=== PATIENT | male | born 1960 | race Caucasian/White ===

== ENCOUNTER 2023-09-24 08:26 | Inpatient (IN) | payer OTHER ==
[~2023-09-24] VITALS: Ht 177.8 cm; Wt 76.1 kg
[2023-09-24] MEDS ORDERED: BACT400T PO (08:41)
[2023-09-24] MEDS ORDERED: METH4PACK PO (08:41)
[2023-09-24] MEDS ORDERED: ACET-907 PO (08:41)
[2023-09-24] MEDS ORDERED: CLEO300C2 PO (08:41)
[2023-09-24] MEDS ORDERED: IBUP200T46 PO (08:41)
[2023-09-24 10:03] LABS: BASO % 0.2 % (0.0-1.0); HEMATOCRIT 35.4 % (42.0-52.0); LYMPH % 7.7 % (24.0-44.0); MEAN CORPUSCULAR HEMOGLOBIN 28.6 pg (27.0-33.0); MEAN CORPUSCULAR HGB CONC 33.9 g/dl (32.0-36.5); MEAN CORPUSCULAR VOLUME 84.5 fl (80.0-96.0); MONO # 0.6 10^3/uL (0.0-0.8); MONO % 4.4 % (2.0-8.0); NEUTROPHILS # 11.6 10^3/uL (1.5-8.5); NEUTROPHILS % 87.2 % (36.0-66.0); PLATELET COUNT, AUTOMATED 167 10^3/uL (150-450); RED BLOOD COUNT 4.19 10^6/uL (4.30-6.10); WHITE BLOOD COUNT 13.3 10^3/uL (4.0-10.0)
[2023-09-24 10:18] LABS: ERYTHROCYTE SEDIMENTATION RATE 61 mm/hr (0-20)
[2023-09-24] MEDS: NS 1,000 ML IV ONE ×2 (10:20→12:07)
[2023-09-24 10:34] LABS: LIPASE 30 U/L (12-53)
[2023-09-24 10:36] LABS: ALBUMIN 2.9 G/DL (3.2-5.2); ALKALINE PHOSPHATASE 430 U/L (46-116); ALT/SGPT 410 U/L (7.0-40); AST/SGOT 255 U/L (<34); BILIRUBIN,DIRECT 0.4 MG/DL (<0.4); BLOOD UREA NITROGEN 16 MG/DL (9-23); CALCIUM LEVEL 8.3 MG/DL (8.3-10.6); CARBON DIOXIDE LEVEL 27 MMOL/L (20-31); CHLORIDE LEVEL 105 MMOL/L (98-107); GLOMERULAR FILTRATION RATE > 60.0 (>49); GLUCOSE, FASTING 129 MG/DL (74-106); POTASSIUM SERUM 4.4 MMOL/L (3.5-5.1); SODIUM LEVEL 137 MMOL/L (136-145); TOTAL PROTEIN 5.9 G/DL (5.7-8.2)
[2023-09-24 10:48] LABS: PROCALCITONIN 0.52 ng/ml
[2023-09-24] MEDS: cefTRIAXone SOD 2 GM in D5W MINI-BAG PLUS 50 ML IV ONE (11:22)
[2023-09-24] MEDS ORDERED: MOM 30ML SUSPENSION UDC PO PRN (12:00)
[2023-09-24] MEDS: DOCUSATE SODIUM 100MG CAPSULE PO SCH (12:07)
[2023-09-24] MEDS ORDERED: ACET-897 PO (12:09)
[2023-09-24] MEDS ORDERED: BACTDSTA PO (12:09)
[2023-09-24] MEDS ORDERED: HOME MED LIST COMPLETE! XX SCH (12:10)
[2023-09-24] MEDS: DOXYCYCLINE HYCLATE 100 MG in D5W MINI-BAG PLUS 100 ML IV SCH (12:38)
[2023-09-24] MEDS: ACETAMINOPHEN TAB 650MG DOSE (2X325MG) PO PRN (12:38)
[2023-09-24 13:40] VITALS: BP 113/74; TEMP 98.1; O2SAT 96
[2023-09-24 13:49] LABS: INR 1.3; PROTHROMBIN TIME 15.7 SECONDS (12.5-14.5)
[2023-09-24] MEDS: RIVAROXABAN 10MG TAB (XARELTO) PO SCH (17:34)
[2023-09-24 19:40] VITALS: BP 113/75; TEMP 98.1; O2SAT 97
[2023-09-24 20:00] VITALS: BP 113/75; TEMP 98.1; O2SAT 97
[2023-09-24] MEDS ORDERED: DOCUSATE SODIUM 100MG CAPSULE PO SCH (21:00)
[2023-09-25] MEDS: ONDANSETRON 4MG ORAL DISINTEGRATING TAB PO PRN (03:29)
[2023-09-25 03:50] VITALS: BP 140/63; TEMP 98.7; O2SAT 94
[2023-09-25 06:32] LABS: BASO % 0.2 % (0.0-1.0); EOS % 0.4 % (0.0-3.0); HEMATOCRIT 35.2 % (42.0-52.0); HEMOGLOBIN 11.9 g/dl (13.5-17.5); LYMPH # 1.6 10^3/uL (1.5-5.0); MEAN CORPUSCULAR HEMOGLOBIN 28.3 pg (27.0-33.0); MEAN CORPUSCULAR HGB CONC 33.8 g/dl (32.0-36.5); MEAN CORPUSCULAR VOLUME 83.6 fl (80.0-96.0); MONO # 0.7 10^3/uL (0.0-0.8); MONO % 7.2 % (2.0-8.0); NEUTROPHILS # 7.2 10^3/uL (1.5-8.5); NEUTROPHILS % 74.7 % (36.0-66.0); PLATELET COUNT, AUTOMATED 217 10^3/uL (150-450); RED BLOOD COUNT 4.21 10^6/uL (4.30-6.10); WHITE BLOOD COUNT 9.6 10^3/uL (4.0-10.0)
[2023-09-25 06:54] LABS: ALBUMIN 2.6 G/DL (3.2-5.2); ALKALINE PHOSPHATASE 381 U/L (46-116); ALT/SGPT 512 U/L (7.0-40); AST/SGOT 402 U/L (<34); BILIRUBIN,DIRECT 0.3 MG/DL (<0.4); BILIRUBIN,TOTAL 0.7 MG/DL (0.3-1.2); BLOOD UREA NITROGEN 15 MG/DL (9-23); CARBON DIOXIDE LEVEL 27 MMOL/L (20-31); CHLORIDE LEVEL 106 MMOL/L (98-107); CREATININE FOR GFR 0.74 MG/DL (0.70-1.30); GLOMERULAR FILTRATION RATE > 60.0 (>49); GLUCOSE, FASTING 100 MG/DL (74-106); POTASSIUM SERUM 4.2 MMOL/L (3.5-5.1); SODIUM LEVEL 138 MMOL/L (136-145); TOTAL PROTEIN 5.7 G/DL (5.7-8.2)
[2023-09-25] MEDS: cefTRIAXone SOD 1 GM in D5W MINI-BAG PLUS 50 ML IV SCH (09:09)
[2023-09-25 10:17] LABS: SALICYLATE LEVEL < 3.0 MG/DL (<30)
[2023-09-25 12:00] VITALS: BP 140/87; TEMP 97.5; O2SAT 98
[2023-09-25] MEDS: ACETYLCYSTEINE IV ONE ×3 (12:17→18:48)
[2023-09-25] MEDS: D5W IV ONE ×3 (12:17→18:48)
[2023-09-25 13:02] LABS: HEPATITIS B SURFACE ANTIGEN NEGATIVE (NEGATIVE)
[2023-09-25 13:15] LABS: HIV 1&2 SCREEN NEGATIVE (NEGATIVE)
[2023-09-25 13:23] LABS: HEPATITIS C VIRUS ABY INDEX < 0.02 INDEX (<0.8)
[2023-09-25 13:24] LABS: HEPATITIS B CORE ANTIBODY IGM NEGATIVE (NEGATIVE)
[2023-09-25] MEDS: ONDANSETRON 4MG 2ML VIAL IV PRN (13:43)
[2023-09-25] MEDS: SCOPOLAMINE 1MG TRANSDERMAL PATCH TOP SCH (13:47)
[2023-09-25 19:58] VITALS: BP 138/89; TEMP 98.4; O2SAT 97
[2023-09-25 20:00] VITALS: BP 138/89; TEMP 98.4; O2SAT 97
[2023-09-26 04:00] VITALS: BP 138/86; TEMP 98.4; O2SAT 97
[2023-09-26 05:44] VITALS: BP 138/86; TEMP 98.4; O2SAT 96
[2023-09-26 06:42] LABS: BASO % 0.2 % (0.0-1.0); EOS # 0.1 10^3/uL (0.0-0.5); EOS % 0.6 % (0.0-3.0); HEMATOCRIT 37.8 % (42.0-52.0); HEMOGLOBIN 12.8 g/dl (13.5-17.5); LYMPH # 1.8 10^3/uL (1.5-5.0); LYMPH % 19.8 % (24.0-44.0); MEAN CORPUSCULAR HEMOGLOBIN 28.5 pg (27.0-33.0); MEAN CORPUSCULAR HGB CONC 33.9 g/dl (32.0-36.5); MEAN CORPUSCULAR VOLUME 84.2 fl (80.0-96.0); MONO # 0.9 10^3/uL (0.0-0.8); MONO % 9.5 % (2.0-8.0); NEUTROPHILS # 6.2 10^3/uL (1.5-8.5); NEUTROPHILS % 69.1 % (36.0-66.0); PLATELET COUNT, AUTOMATED 292 10^3/uL (150-450); RED BLOOD COUNT 4.49 10^6/uL (4.30-6.10)
[2023-09-26] MEDS ORDERED: ISOVUE-370 76% 100ML VIAL As Ordered ONE (06:58)
[2023-09-26 07:15] LABS: PROCALCITONIN 0.27 ng/ml
[2023-09-26 07:21] LABS: ERYTHROCYTE SEDIMENTATION RATE 56 mm/hr (0-20)
[2023-09-26 07:34] LABS: ALBUMIN 2.6 G/DL (3.2-5.2); BILIRUBIN,DIRECT 0.3 MG/DL (<0.4); BILIRUBIN,TOTAL 0.7 MG/DL (0.3-1.2)
[2023-09-26 09:45] LABS: BASO % 0.2 % (0.0-1.0); EOS % 0.1 % (0.0-3.0); HEMATOCRIT 41.2 % (42.0-52.0); HEMOGLOBIN 13.7 g/dl (13.5-17.5); LYMPH # 1.5 10^3/uL (1.5-5.0); LYMPH % 16.4 % (24.0-44.0); MEAN CORPUSCULAR HEMOGLOBIN 28.3 pg (27.0-33.0); MEAN CORPUSCULAR HGB CONC 33.3 g/dl (32.0-36.5); MEAN CORPUSCULAR VOLUME 85.1 fl (80.0-96.0); MONO # 0.9 10^3/uL (0.0-0.8); MONO % 9.4 % (2.0-8.0); NEUTROPHILS # 6.8 10^3/uL (1.5-8.5); NEUTROPHILS % 72.9 % (36.0-66.0); PLATELET COUNT, AUTOMATED 316 10^3/uL (150-450); RED BLOOD COUNT 4.84 10^6/uL (4.30-6.10); WHITE BLOOD COUNT 9.4 10^3/uL (4.0-10.0)
[2023-09-26 09:50] LABS: ERYTHROCYTE SEDIMENTATION RATE 64 mm/hr (0-20)
[2023-09-26 09:58] LABS: INR 1.17; PARTIAL THROMBOPLASTIN TIME 28.4 SECONDS (24.8-34.2); PROTHROMBIN TIME 14.5 SECONDS (12.5-14.5)
[2023-09-26 10:08] LABS: C REACTIVE PROTEIN QUANTITATIV 5.5 MG/DL (<1.0)
[2023-09-26 12:26] VITALS: BP 112/81; TEMP 97; O2SAT 80
[2023-09-26 12:51] LABS: ALBUMIN 2.8 G/DL (3.2-5.2); BILIRUBIN,DIRECT 0.3 MG/DL (<0.4); BILIRUBIN,TOTAL 0.7 MG/DL (0.3-1.2); TOTAL PROTEIN 6.7 G/DL (5.7-8.2)
[2023-09-26] MEDS ORDERED: KETOROLAC 30 MG/ML 1ML VIAL IV PRN (15:30)
[2023-09-26] MEDS: KETOROLAC 30 MG/ML 1ML VIAL IV PRN (15:42)
[2023-09-26 20:58] VITALS: BP 135/82; TEMP 98.1; O2SAT 98
[2023-09-27 04:12] VITALS: BP 134/86; TEMP 97.9; O2SAT 96
[2023-09-27 07:51] LABS: BASO % 0.5 % (0.0-1.0); EOS # 0.1 10^3/uL (0.0-0.5); EOS % 0.8 % (0.0-3.0); HEMATOCRIT 38.3 % (42.0-52.0); HEMOGLOBIN 12.7 g/dl (13.5-17.5); LYMPH # 1.6 10^3/uL (1.5-5.0); LYMPH % 21.4 % (24.0-44.0); MEAN CORPUSCULAR HEMOGLOBIN 28.3 pg (27.0-33.0); MEAN CORPUSCULAR HGB CONC 33.2 g/dl (32.0-36.5); MEAN CORPUSCULAR VOLUME 85.3 fl (80.0-96.0); MONO # 0.8 10^3/uL (0.0-0.8); MONO % 10.3 % (2.0-8.0); NEUTROPHILS # 4.8 10^3/uL (1.5-8.5); NEUTROPHILS % 65.8 % (36.0-66.0); PLATELET COUNT, AUTOMATED 301 10^3/uL (150-450); RED BLOOD COUNT 4.49 10^6/uL (4.30-6.10); WHITE BLOOD COUNT 7.3 10^3/uL (4.0-10.0)
[2023-09-27 08:12] LABS: C REACTIVE PROTEIN QUANTITATIV 2.8 MG/DL (<1.0)
[2023-09-27 08:16] LABS: ALBUMIN 2.6 G/DL (3.2-5.2); BILIRUBIN,DIRECT 0.3 MG/DL (<0.4); BILIRUBIN,TOTAL 0.7 MG/DL (0.3-1.2); TOTAL PROTEIN 5.9 G/DL (5.7-8.2)
[2023-09-27] MEDS: DOXYCYCLINE HYCLATE 100MG TABLET PO SCH (08:34)
[2023-09-27] MEDS ORDERED: TRAN1DIS4 TOP (09:25)
[2023-09-27] MEDS ORDERED: DOXY100T PO (09:25)
[2023-09-27 23:58] LABS: Anaplasma phagocytophilum NOT DETECTED (NOT DETECT); Babesia microti NOT DETECTED (NOT DETECT); Ehrlichia chaffeensis NOT DETECTED (NOT DETECT)
[2023-09-28 05:47] LABS: BORRELIA SPECIES DNA NOT DETECTED (NOT DETECT)
[2023-09-28 11:47] LABS: SSA SJOGRENS A <1.0 NEG AI (<1.0 NEG); SSB SJOGRENS B <1.0 NEG AI (<1.0 NEG)
[2023-09-28 12:32] LABS: CARDIOLIPIN IGA ANTIBODY < 2.0 APL-U/mL (<20.0); CARDIOLIPIN IGG ANTIBODY < 2.0 GPL-U/mL (<20.0)
[2023-09-28 12:58] LABS: ANA SCREEN, IFA NEGATIVE (NEGATIVE)
[2023-09-28 14:01] LABS: LYME TOTAL ANTIBODY CIA 4.87 Index (<=0.90)
[2023-09-28 17:56] LABS: HOMOCYST(E)INE SERUM < 3.0 umol/L (<11.4)
[2023-09-28 17:56] LABS: LYME AB IGG BY CIA <= 0.90 Index (<=0.90); LYME AB IGM BY CIA 7.53 Index (<=0.90)
[2023-09-29 14:02] LABS: PROTEIN S ANTIGEN FREE 127 % normal (57-171); PROTEIN S ANTIGEN TOTAL 143 % normal (70-140)
[2023-09-29 19:24] LABS: PROTEIN C ANTIGEN 97 % normal (70-140)
[2023-09-30 02:03] LABS: ANCA SCREEN Negative (Negative)
== END 2023-09-27 11:50 | disposition home or self-care (01) | DRG 724 ==
LOC: M ED 08:26 → M ED INP 11:57 → M MSPAV 13:37
PROVIDERS: ADMIT Student in an Organized Health Care Education/Training Program; ATTEND Student in an Organized Health Care Education/Training Program
DX: B99.9 Unspecified infectious disease (principal); I82.0 Budd-Chiari syndrome; K76.0 Fatty (change of) liver, not elsewhere classified; K71.8 Toxic liver disease with other disorders of liver; I71.40 Abdominal aortic aneurysm, without rupture, unspecified; R94.5 Abnormal results of liver function studies; R21 Rash and other nonspecific skin eruption; M79.10 Myalgia, unspecified site; Z79.899 Other long term (current) drug therapy; L03.113 Cellulitis of right upper limb